=== PATIENT | female | born 1950 | race Hispanic/Latino ===

== ENCOUNTER → 2019-01-01 | Outpatient (CLI) | payer MEDICARE ==
[~2019-01-01] VITALS: Ht 157.5 cm; Wt 74.8 kg
[~2019-01-01] MED LIST: AZAT50TA PO; CYCL10 PO; HYDR-4060 PO; LOSA100T58 PO; PRED2.5T PO; PRED5TAB PO; REGADENOSON 0.4 MG/5 ML PF SYG IVP SCH; RITU1010I INJ; SULF500T8 PO; VALS80TA2 PO
== END | disposition home or self-care (01) ==
LOC: SHCH 08:38
PROVIDERS: ATTEND Internal Medicine Cardiovascular Disease
DX: I25.119 Atherosclerotic heart disease of native coronary artery with unspecified angina pectoris (principal)
CPT/HCPCS: 78452; 93017; 96374; A9500 ×2; J2785

== ENCOUNTER → 2019-01-14 | Outpatient (CLI) | payer MEDICARE ==
[~2019-01-14] MED LIST changes: -REGADENOSON 0.4 MG/5 ML PF SYG IVP SCH
== END | disposition home or self-care (01) ==
LOC: SHCH 11:02
PROVIDERS: ATTEND Internal Medicine Cardiovascular Disease
DX: I08.0 Rheumatic disorders of both mitral and aortic valves (principal); I10 Essential (primary) hypertension
CPT/HCPCS: 93306

== ENCOUNTER 2019-02-02 06:46 | Day surgery (SDC) | payer MEDICARE ==
[2019-01-30 15:56] VITALS: BP 130/74
[2019-01-30 16:02] LABS: EOSINOPHILS % (AUTO) 2.2 % (0.0-8.0); HEMATOCRIT 30.3 % (36-48); LYMPHOCYTES % (AUTO) 24.4 % (21.0-51.0); MEAN CORPUSCULAR HGB CONC 31.2 g/dL (32.0-36.0); MEAN CORPUSCULAR VOLUME 73.7 fL (79-99); MONOCYTES % (AUTO) 9.6 % (3.0-13.0); NEUTROPHILS % (AUTO) 62.8 % (40.0-77.0); PLATELET COUNT (AUTO) 246 K/uL (130-400); RED BLOOD CELL COUNT(AUTO) 4.11 MIL/uL (4.00-5.50); RED CELL DISTRIBUTION WIDTH 18.4 % (11.0-15.5); WHITE BLOOD COUNT (AUTO) 3.9 K/uL (4.8-10.8)
--- NOTE | 2019-01-30 17:46 | NUR ---
LABS INFORMED DR. TONG OF CBC UNCHANGED FROM PCP VISIT. PT HAS CHRONIC ANEMIA AND INFORMED DR. TONG OF HYDRCORTISONE TO BE GIVEN PRIOR OR AFTER PROCEDURE SO RA DOES NOT FLARE UP. NO ORDERS RECEIVED. PROCEED WITH PLANNED PROCEDURE
[~2019-02-02] VITALS: Ht 154.9 cm; Wt 71.9 kg
[2019-02-02] VITALS (14 sets, daily range): BP systolic 128–151; BP diastolic 72–92
[2019-02-02] MEDS: CEFAZOLIN SODIUM 1 GM VIAL IVP SCH ×2 (06:00→11:08)
[2019-02-02] MEDS ORDERED: LACTATED RINGERS 1000ML 1,000 ML IV ONE (07:24)
[2019-02-02] MEDS ORDERED: HYOS-28 PO (07:45)
[2019-02-02] MEDS ORDERED: ASPI-1026 PO (07:45)
[2019-02-02] MEDS ORDERED: NITR0.4T50 SL (07:45)
[2019-02-02] MEDS ORDERED: OMEP40CA37 PO (07:45)
[2019-02-02] MEDS ORDERED: HYDR200T4 PO (07:45)
[2019-02-02] MEDS ORDERED: CLON0.1T PO (07:45)
--- NOTE | 2019-02-02 07:47 | NUR ---
PRE OP PREP pt left shoulder wiped with chlorhexidine 2% cloth by Alisia Hicks Addendum: 02/02/19 at 0750 by MARIA LUISA DENNIS RN RN Amended: Links added.
[2019-02-02] MEDS ORDERED: LIDOCAINE PF 2% 5ML ABBOJECT ONE (08:24)
[2019-02-02] MEDS ORDERED: GLYCOPYRROLATE 1 MG/5 ML SYRINGE ONE (08:24)
[2019-02-02] MEDS ORDERED: ROPIVACAINE 0.5% 5MG/ML 30ML IJ ONE (08:24)
[2019-02-02] MEDS ORDERED: FENTANYL CITRATE PF 50 MCG/1 ML 2ML VIAL ONE (08:25)
[2019-02-02] MEDS ORDERED: NEOSTIGMINE 5MG/5ML SYR IV ONE (08:25)
[2019-02-02] MEDS ORDERED: MIDAZOLAM HCL 1 MG/ML 2ML VIAL ONE (08:25)
[2019-02-02] MEDS ORDERED: PROPOFOL 10 MG/ML 20ML VIAL IV ONE (08:25)
[2019-02-02] MEDS ORDERED: ROCURONIUM 10MG/1ML SYR 10 MG/ML ML ONE ×2 (08:25→11:03)
[2019-02-02] MEDS ORDERED: EPINEPHRINE 1 MG/ML 30ML VIAL IJ ONE (08:42)
[2019-02-02] MEDS ORDERED: METHYLPREDNISOLONE SOD SUCC 125MG/2ML VIAL ONE (09:05)
[2019-02-02] MEDS ORDERED: EPHEDRINE SULFATE 50 MG/ML AMPULE ONE (11:06)
[2019-02-02] MEDS ORDERED: ONDANSETRON HCL 4 MG/2 ML VIAL ONE (12:22)
[2019-02-02] MEDS ORDERED: HYDR-4457 PO (12:28)
[2019-02-02] MEDS ORDERED: CEPH500B PO (12:28)
--- NOTE | 2019-02-02 13:35 | NUR ---
RECEIVE PT RECEIVED FROM PACU VIA STRETCHER AWAKE ALERT ORIENTED X3. PT STABLE. NO COMPLAINTS MADE. LEFT ARM IN SLING. LEFT SHOULDER DRESSINGS DRY AND INTACT, NO OOZING NOTED. ICE PACK APPLIED TO SITE. SENSATION LEFT SHOULDER/UPPER EXTREMITY INTACT, HAND REAL ESTATE INVESTOR WEAK, CAPILLARY REFILLS BRISK. CALL MAGAÑA WITHIN REACH, WILL CALL FOR FAMILY TO COME IN TO ROOM.
--- NOTE | 2019-02-02 14:10 | NUR ---
DISCHARGE PT DISCHARGED VIA WHEELCHAIR WITH DAUGHTER. PT STABLE. NO COMPLAINTS MADE. LEFT SHOULDER DRESSINGS REMAINED DRY AND INTACT, NO OOZING TO SITE NOTED. LEFT ARM IN SLING. NO CHANGES FROM ARRIVAL TO UNIT. DISCHARGE INSTRUCTIONS GIVEN TO DAUGHTER, VERBALIZED UNDERSTANDING.
== END 2019-02-02 14:10 | disposition home or self-care (01) ==
LOC: DAH 06:46
PROVIDERS: ATTEND Orthopaedic Surgery
DX: M19.012 Primary osteoarthritis, left shoulder (principal); M32.9 Systemic lupus erythematosus, unspecified; I10 Essential (primary) hypertension; E78.5 Hyperlipidemia, unspecified; Z87.891 Personal history of nicotine dependence; Z79.82 Long term (current) use of aspirin; Z98.890 Other specified postprocedural states; M25.512 Pain in left shoulder; G89.29 Other chronic pain; Z90.710 Acquired absence of both cervix and uterus; M25.812 Other specified joint disorders, left shoulder
CPT/HCPCS: 29822; 29824; 36415; 64415; 85025; A4565; A4649 ×3; A4930; A6204; G0168; J0171; J0690; J2001; J2250; J2405; J2704; J2710; J2795; J2930; J3010; J3490 ×2; J7030; J7120

== ENCOUNTER → 2019-10-08 | Outpatient (CLI) | payer MEDICARE ==
[~2019-10-08] MED LIST changes: +ASPI-1026 PO; +CEPH500B PO; +CLON0.1T PO; -CYCL10 PO; -HYDR-4060 PO; +HYDR-4457 PO; +HYDR200T4 PO; +HYOS-28 PO; +NITR0.4T50 SL; +OMEP40CA13 PO; -RITU1010I INJ; -VALS80TA2 PO
== END | disposition home or self-care (01) ==
LOC: RAH 10:00
PROVIDERS: ATTEND Internal Medicine Cardiovascular Disease
DX: R51 Headache (principal); R42 Dizziness and giddiness
CPT/HCPCS: 70450

== ENCOUNTER 2019-10-23 19:35 | Emergency (ER) | payer MEDICARE ==
[2019-10-23 20:36] LABS: APPEARANCE,URINE Clear (CLEAR); BILIRUBIN,URINE Negative (NEGATIVE); COLOR,URINE Yellow (YELLOW); GLUCOSE, URINE (UA) Negative (NEGATIVE); KETONES,URINE Negative (NEGATIVE); LEUKOCYTE ESTERASE ,URINE Moderate (NEGATIVE); NITRATE,URINE Positive (NEGATIVE); OCCULT BLOOD,URINE Negative (NEGATIVE); PH,URINE 6.5 (5.0-8.0); PROTEIN,URINE Negative (NEGATIVE)
[2019-10-23 20:48] LABS: BACTERIA,URINE Moderate /HPF (None Seen); MUCUS,URINE Few LPF (None Seen); SQUAMOUS EPITHELIAL CELL,UR 0-2 /HPF (0-2)
[2019-10-23] MEDS ORDERED: CEFTRIAXONE SODIUM 1 GM ONE (20:51)
[2019-10-23] MEDS ORDERED: LIDOCAINE HCL-MPF 1% 2ML VIAL ONE (20:51)
[2019-10-23 21:03] LABS: BASOPHILS % (AUTO) 0.6 % (0.0-5.0); HEMATOCRIT 38.1 % (36-48); LYMPHOCYTES % (AUTO) 22.8 % (21.0-51.0); MEAN CORPUSCULAR HEMOGLOBIN 24.7 pg (27.0-33.0); MEAN CORPUSCULAR HGB CONC 31.5 g/dL (32.0-36.0); MEAN CORPUSCULAR VOLUME 78.6 fL (79-99); NEUTROPHILS % (AUTO) 65.4 % (40.0-77.0); PLATELET COUNT (AUTO) 226 K/uL (130-400); RED BLOOD CELL COUNT(AUTO) 4.85 MIL/uL (4.00-5.50); RED CELL DISTRIBUTION WIDTH 21.2 % (11.0-15.5); WHITE BLOOD COUNT (AUTO) 6.4 K/uL (4.8-10.8)
[2019-10-23 21:16] LABS: CREATININE 0.8 mg/dL (0.5-1.5); POTASSIUM 4.5 mmol/L (3.5-5.1)
[2019-10-23 21:19] LABS: INR 0.95 (0.85-1.15); PARTIAL THROMBOPLASTIN TIME 26.3 SEC (26.3-35.5)
[2019-10-23 21:21] LABS: ALBUMIN 3.8 g/dL (3.5-5.0); BILIRUBIN,TOTAL 0.2 mg/dL (0.2-1.0); TOTAL PROTEIN, SERUM 6.9 g/dL (6.0-8.3)
== END 2019-10-23 21:26 | disposition home or self-care (01) ==
LOC: EDH 19:35
DX: N39.0 Urinary tract infection, site not specified (principal); K59.00 Constipation, unspecified; G89.29 Other chronic pain; M54.5 Low back pain; M32.9 Systemic lupus erythematosus, unspecified; M06.9 Rheumatoid arthritis, unspecified; Z98.890 Other specified postprocedural states
CPT/HCPCS: 36415; 74176; 80053; 81001; 83690; 85025; 85610; 85730; 96372; 99284; J0696; J3490

== ENCOUNTER 2020-04-27 19:22 | Emergency (ER) | payer MEDICARE ==
[2020-04-27] MEDS ORDERED: SODIUM CHLORIDE 0.9% 1000ML 1,000 ML IV ONE (19:23)
[2020-04-27] MEDS ORDERED: FAMOTIDINE/PF 20 MG/2 ML VIAL IV ONE (19:58)
[2020-04-27] MEDS ORDERED: ONDANSETRON HCL 4 MG/2 ML VIAL ONE (19:58)
[2020-04-27 20:01] LABS: BASOPHILS % (AUTO) 0.4 % (0.0-5.0); EOSINOPHILS % (AUTO) 2.1 % (0.0-8.0); HEMATOCRIT 40.8 % (36-48); LYMPHOCYTES % (AUTO) 31.1 % (21.0-51.0); MEAN CORPUSCULAR HEMOGLOBIN 29.3 pg (27.0-33.0); MEAN CORPUSCULAR HGB CONC 33.1 g/dL (32.0-36.0); MEAN CORPUSCULAR VOLUME 88.7 fL (79-99); NEUTROPHILS % (AUTO) 56.2 % (40.0-77.0); PLATELET COUNT (AUTO) 180 K/uL (130-400); RED CELL DISTRIBUTION WIDTH 15.3 % (11.0-15.5); WHITE BLOOD COUNT (AUTO) 4.8 K/uL (4.8-10.8)
[2020-04-27 20:20] LABS: CREATININE 0.6 mg/dL (0.5-1.5); POTASSIUM 3.9 mmol/L (3.5-5.1)
[2020-04-27 20:21] LABS: INR 0.9 (0.85-1.15); PARTIAL THROMBOPLASTIN TIME 24.6 SEC (26.3-35.5); PROTHROMBIN TIME 9.8 SEC (9.6-11.6)
[2020-04-27 20:24] LABS: BILIRUBIN,TOTAL 0.2 mg/dL (0.2-1.0); TOTAL PROTEIN, SERUM 6.9 g/dL (6.0-8.3)
[2020-04-27] MEDS ORDERED: IOHEXOL-350 75 ML VIAL IV ONE (20:31)
[2020-04-27 21:54] LABS: APPEARANCE,URINE Clear (CLEAR); BILIRUBIN,URINE Negative (NEGATIVE); COLOR,URINE Yellow (YELLOW); GLUCOSE, URINE (UA) Negative (NEGATIVE); KETONES,URINE Negative (NEGATIVE); LEUKOCYTE ESTERASE ,URINE Negative (NEGATIVE); NITRATE,URINE Negative (NEGATIVE); OCCULT BLOOD,URINE Negative (NEGATIVE); PROTEIN,URINE Negative (NEGATIVE); UROBILINOGEN,URINE 0.2 mg/dL (0.2-1.0)
[2020-04-27] MEDS ORDERED: METOCLOPRAMIDE 10 MG/2 ML VIAL ONE (22:08)
[2020-04-27] MEDS ORDERED: DICYCLOMINE HCL 20 MG TAB ONE (22:09)
[2020-04-27] MEDS ORDERED: HYOSCYAMINE SULFATE 0.125 MG TAB.SUBL SL ONE (22:09)
== END 2020-04-27 22:38 | disposition home or self-care (01) ==
LOC: EDH 19:22
DX: K52.9 Noninfective gastroenteritis and colitis, unspecified (principal); M06.9 Rheumatoid arthritis, unspecified; M32.9 Systemic lupus erythematosus, unspecified; M19.90 Unspecified osteoarthritis, unspecified site; Z90.710 Acquired absence of both cervix and uterus; Z90.49 Acquired absence of other specified parts of digestive tract; Z72.0 Tobacco use
CPT/HCPCS: 36415; 74177; 80053; 81003; 83605; 83690; 84484; 85025; 85610; 85730; 93005; 96361; 96374; 96375; 99285; J2405; J2765; J3490; J7030; Q9967

== ENCOUNTER 2020-08-03 11:33 | Inpatient (IN) | payer MEDICARE ==
[~2020-08-03] VITALS: Ht 157.5 cm; Wt 61.8 kg
[2020-08-03 11:55] LABS: BASOPHILS % (AUTO) 0.6 % (0.0-5.0); EOSINOPHILS % (AUTO) 1.8 % (0.0-8.0); LYMPHOCYTES % (AUTO) 18.9 % (21.0-51.0); MEAN CORPUSCULAR HEMOGLOBIN 30.2 pg (27.0-33.0); MEAN CORPUSCULAR VOLUME 88.8 fL (79-99); MONOCYTES % (AUTO) 7.7 % (3.0-13.0); NEUTROPHILS % (AUTO) 70.8 % (40.0-77.0); PLATELET COUNT (AUTO) 245 K/uL (130-400); RED BLOOD CELL COUNT(AUTO) 4.73 MIL/uL (4.00-5.50); RED CELL DISTRIBUTION WIDTH 13.5 % (11.0-15.5); WHITE BLOOD COUNT (AUTO) 5.1 K/uL (4.8-10.8)
[2020-08-03 12:00] LABS: CREATININE 0.6 mg/dL (0.5-1.5); POTASSIUM 3.1 mmol/L (3.5-5.1)
[2020-08-03 12:05] LABS: ALBUMIN 3.8 g/dL (3.5-5.0); BILIRUBIN,TOTAL 0.3 mg/dL (0.2-1.0); TOTAL PROTEIN, SERUM 6.9 g/dL (6.0-8.3)
[2020-08-03 12:21] LABS: INR 0.92 (0.85-1.15)
[2020-08-03] MEDS ORDERED: SODIUM CHLORIDE 0.9% 1000ML 1,000 ML IV ONE ×2 (14:08→17:10)
[2020-08-03] MEDS ORDERED: MECLIZINE HCL 25 MG TABLET ONE (14:09)
[2020-08-03 14:35] LABS: APPEARANCE,URINE Clear (CLEAR); BILIRUBIN,URINE Negative (NEGATIVE); COLOR,URINE Yellow (YELLOW); GLUCOSE, URINE (UA) Negative (NEGATIVE); KETONES,URINE Negative (NEGATIVE); LEUKOCYTE ESTERASE ,URINE Negative (NEGATIVE); NITRATE,URINE Negative (NEGATIVE); OCCULT BLOOD,URINE Negative (NEGATIVE); PROTEIN,URINE Negative (NEGATIVE); UROBILINOGEN,URINE 0.2 mg/dL (0.2-1.0)
[2020-08-03] MEDS ORDERED: ACETAMINOPHEN 325 MG TAB PO PRN (16:45)
[2020-08-03] MEDS ORDERED: MAG HYDROX/AL HYDROX/SIMETH ES 30 ML SUSP UDCUP PO PRN (16:45)
[2020-08-03] MEDS ORDERED: GUAIFENESIN-DM 200/20 MG 10 ML PO PRN (16:45)
[2020-08-03] MEDS ORDERED: ACETAMINOPHEN-CODEINE 300/30MG TAB PO PRN ×2 (16:45)
[2020-08-03] MEDS ORDERED: ONDANSETRON HCL 4 MG/2 ML VIAL IV PRN (16:45)
[2020-08-03] MEDS: SODIUM CHLORIDE 0.9% 1000ML 1,000 ML IV SCH (16:45)
[2020-08-03] MEDS ORDERED: NITROGLYCERIN 0.4 MG SL TAB SL PRN (16:45)
[2020-08-03] MEDS ORDERED: ACETAMINOPHEN-CODEINE 300/30MG TAB ONE (17:07)
[2020-08-03] MEDS ORDERED: POTASSIUM CHLORIDE 20 MEQ ERTAB PO ONE (17:08)
[2020-08-03 20:06] VITALS: BP 177/97
--- NOTE | 2020-08-03 20:10 | NUR ---
ADMIT PT ADMITTED TO ROOM 403, AAOX3. VERBALIZES OF DIZZINESS WITH AMBULATION. DENIES ANY PAINS AT THIS TIME BUT CLAIMS SHE WILL NEED SOME PAIN MEDS FOR HER TO SLEEP. DUE TO CHRONIC BACK PAINS AND ARTHRITIC PAINS. ADMISSION ASSESSMENT DONE, PLEASE REFER TO CHART. IVF FROM ER OF CONTINUED, REGULATED AT 75CC/HR. ADMISSION CARE DONE. ADMISSION DATA BASE COMPLETED. PLACED COMFORTABLY IN BED WITH HOB ELEVATED. ORIENTED TO ROOM AND UNIT. IN FOR MORE CARE AND MANAGEMENT. Addendum: 08/03/20 at 2322 by CHELSI ROMERO RN RN Amended: Links added.
[2020-08-03] MEDS: ACETAMINOPHEN 325 MG TAB PO PRN (21:29)
--- NOTE | 2020-08-03 21:30 | NUR ---
PAIN PT CLAIMS OF BACK PAINS, MEDICATED WITH TYLENOL PO. FLU VACCINE REQUESTED BY PT ADMINISTERED WELL. PT TOLERATED MED SWELL. ENCOURAGED TO REST AND SLEEP. KEPT COMFORTABLE IN BED. WILL RE-ASSESS PT.
[2020-08-03] MEDS ORDERED: FLUD0.1T2 PO (21:41)
[2020-08-03] MEDS ORDERED: IRON 65MG PO (21:41)
[2020-08-03] MEDS ORDERED: BP SUPPORT PO (21:41)
[2020-08-03] MEDS ORDERED: AMLO-257 PO (21:41)
[2020-08-03] MEDS ORDERED: HYDROCODONE/ACETAMINOPHEN 5/325 MG TAB PO PRN (22:30)
[2020-08-03] MEDS ORDERED: CLONIDINE HCL 0.1 MG TABLET PO PRN (22:30)
[2020-08-03] MEDS ORDERED: LABETALOL HCL 5 MG/ML 20ML VIAL IV PRN (22:45)
[2020-08-03] MEDS ORDERED: CLONIDINE HCL 0.1 MG TABLET ONE (22:45)
[2020-08-03] MEDS ORDERED: HYOSCYAMINE SULFATE 0.125 MG TAB.SUBL SL PRN (23:15)
[2020-08-04] VITALS (7 sets, daily range): BP systolic 116–163; BP diastolic 84–105
--- NOTE | 2020-08-04 02:00 | NUR ---
ROUNDS PT FAIRLY ASLEEP. NO DISTRESS NOTED. KEPT UNDISTURBED FOR NOW. WILL CONTINUE TO MONITOR. CALL LIGHT WITHIN REACH.
[2020-08-04 05:19] LABS: HEMATOCRIT 39.8 % (36-48); MEAN CORPUSCULAR HGB CONC 33.7 g/dL (32.0-36.0); MEAN CORPUSCULAR VOLUME 89.2 fL (79-99); RED BLOOD CELL COUNT(AUTO) 4.46 MIL/uL (4.00-5.50); RED CELL DISTRIBUTION WIDTH 13.6 % (11.0-15.5); WHITE BLOOD COUNT (AUTO) 4.6 K/uL (4.8-10.8)
[2020-08-04 05:30] LABS: INR 0.92 (0.85-1.15)
[2020-08-04 05:35] LABS: HEMOGLOBIN A1C 5.8 % (4.0-6.0)
[2020-08-04 05:57] LABS: ALANINE AMINOTRANSFERASE 21 U/L (12-78); ALBUMIN 3.6 g/dL (3.5-5.0); ASPARTATE AMINOTRANSFERASE 20 U/L (10-37); BILIRUBIN,TOTAL 0.3 mg/dL (0.2-1.0); CARBON DIOXIDE 28 mmol/L (21-32); CHLORIDE 110 mmol/L (101-111); CHOLESTEROL 195 mg/dL (<200); CREATINE KINASE, TOTAL 42 U/L (21-232); CREATININE 0.5 mg/dL (0.5-1.5); GLOMERULAR FILTR. RATE CALC 130 mL/min (>60); GLUCOSE,RANDOM 104 mg/dL (70-105); HDL CHOLESTEROL 55 mg/dL (35-85); LDL DIRECT 110 mg/dL (0-99); MYOGLOBIN 19 ng/mL (10-92); SODIUM SERUM 146 mmol/L (136-145); TOTAL PROTEIN, SERUM 6.7 g/dL (6.0-8.3); TRIGLYCERIDES 84 mg/dL (30-200); TROPONIN I < 0.04 ng/mL (0.00-0.06); UREA NITROGEN, BLOOD 11 mg/dL (7-18)
[2020-08-04] MEDS: SODIUM CHLORIDE 0.9% 1000ML 1,000 ML IV SCH (06:07)
--- NOTE | 2020-08-04 06:10 | NUR ---
ROUNDS PT STILL FAIRLY ASLEEP. NO DISTRESS NOTED. NEW IV BAG HUNG. KEPT UNDISTURBED. FOR MORE CARE.
[2020-08-04] MEDS ORDERED: BP SUPPORT PO SCH (09:00)
[2020-08-04] MEDS ORDERED: FLU VACC QS2020-21(6MOS UP)/PF 60 MCG/0.5 ML ML IM ONE (09:00)
--- NOTE | 2020-08-04 09:08 | NUR ---
DR BRYANT ROUNDED ON PATIENT , WRITTEN ORDERS RECEIVED
[2020-08-04] MEDS: FERROUS SULFATE 325 MG TABLET.DR PO SCH (10:20)
[2020-08-04] MEDS: PREDNISONE 5 MG TABLET PO SCH (10:20)
[2020-08-04] MEDS: AZATHIOPRINE 50 MG TAB PO SCH ×2 (10:21→21:23)
[2020-08-04] MEDS: FLUDROCORTISONE ACETATE 0.1 MG TABLET PO SCH (10:21)
[2020-08-04] MEDS: LOSARTAN 100 MG TABLET PO SCH (10:21)
[2020-08-04] MEDS: AMLODIPINE BESYLATE 5 MG TAB PO SCH (10:21)
[2020-08-04] MEDS: PANTOPRAZOLE SODIUM 40 MG TABLET.DR PO SCH (10:30)
[2020-08-04] MEDS: ASPIRIN 325 MG TABLET PO SCH (10:31)
[2020-08-04] MEDS ORDERED: MECLIZINE HCL 25 MG TABLET PO PRN (12:00)
[2020-08-04] MEDS: SULFASALAZINE 500 MG TAB.DR PO SCH ×2 (13:36→21:23)
[2020-08-04] MEDS: HYDROXYCHLOROQUINE SULFATE 200 MG TAB PO SCH (13:36)
--- NOTE | 2020-08-04 13:48 | NUR ---
RD NOTIFICATION Pt admitted due to a presyncopal episode. Pt has hx of lupus, RA, OA Pt stated she only eats 1 meal at home. She feels dizzy when she eats more. Pt has had a previous surgery in her stomach lining as per pt and daughter. Unclear on name of procedure. Pt takes iron supplementation as per her PCP recommendations Pt and pt's daughter request education on anti-inflammatory diet due to lupus, RA, and OA. RD RECOMMENDATION 6 SMALL MEALS/DAY ENSURE QD MONITOR PO INTAKE MONITOR PO TOLERANCE DIET EDUCATION 1500 ML FLUID RESTRICTION- SIGN AT PT'S DOOR LABS: WBC 4.6, NA 146, LDL 110, A1C 5.8, CREAT 0.5 Addendum: 08/04/20 at [address] Amended: Links added.
--- NOTE | 2020-08-04 14:45 | NUR ---
RD TEACHING NOTE Pt and pt's daughter requested diet education and handouts for anti-inflammatory diet RD provided education and handouts from [employer]. Pt was encouraged to swap table salt with MRS.Dash junior. Daughter was encouraged to keep a list of foods that trigger pain for pt. Pt and pt's daughter verbalized understanding to diet education. RD will continue to follow, thank you Addendum: 08/04/20 at [address] Amended: Links added.
--- NOTE | 2020-08-04 16:24 | NUR ---
[facility] CM met with pt and son in room this morning, discussed dc plans. Pt is independent prior to admission, lives at home alone, son lives close by. Pt has a walker, wheelchair, rollator walker, 2 shower chairs, 4 cane. Denies any other equipments/services. Feels safe to go back home, still drives, son able to assist with transportation and needs as necessary. Pt uses [facility]. DC plan to home once stable. CM to continue to follow up. Addendum: 08/04/20 at 1626 by KRUPA MELENDREZ LVN Amended: Links added.
[2020-08-04] MEDS ORDERED: PREDNISONE 5 MG TABLET PO SCH (21:00)
--- NOTE | 2020-08-04 21:25 | NUR ---
MEDS SHIFT ASSESSMENT DONE, PLEASE REFER TO CHART. DUE MEDS ADMINISTERED, TOLERATED WELL. KEPT COMFORTABLE AND RESTED. CALL LIGHT WITHIN REACH. WILL MONITOR PT. Addendum: 08/04/20 at 2233 by CHELSI ROMERO RN RN Amended: Links added.
--- NOTE | 2020-08-04 23:30 | NUR ---
H/A PT'S BP ELEVATED AT 163/105 AND COMPLAINTS OF HEADACHE. MEDICATED WITH TYLENOL AND CLONIDINE PO. ENCOURAGED TO REST. WILL RE-ASSESS PT.
[2020-08-04] MEDS: ACETAMINOPHEN 325 MG TAB PO PRN (23:31)
[2020-08-05 00:35] VITALS: BP 139/96
--- NOTE | 2020-08-05 02:00 | NUR ---
ROUNDS PT RESTING WELL,FAIRLY ASLEEP. NO DISTRESS NOTED. KEPT UNDISTURBED FOR NOW. WILL CONTINUE TO MONITOR. CALL LIGHT WITHIN REACH.
[2020-08-05 03:56] LABS: BASOPHILS % (AUTO) 0.6 % (0.0-5.0); EOSINOPHILS % (AUTO) 1.6 % (0.0-8.0); HEMATOCRIT 39.6 % (36-48); LYMPHOCYTES % (AUTO) 25.8 % (21.0-51.0); MEAN CORPUSCULAR HEMOGLOBIN 30.2 pg (27.0-33.0); MEAN CORPUSCULAR HGB CONC 33.8 g/dL (32.0-36.0); MEAN CORPUSCULAR VOLUME 89.4 fL (79-99); MONOCYTES % (AUTO) 10.9 % (3.0-13.0); NEUTROPHILS % (AUTO) 60.9 % (40.0-77.0); PLATELET COUNT (AUTO) 228 K/uL (130-400); RED BLOOD CELL COUNT(AUTO) 4.43 MIL/uL (4.00-5.50); RED CELL DISTRIBUTION WIDTH 13.3 % (11.0-15.5); WHITE BLOOD COUNT (AUTO) 6.2 K/uL (4.8-10.8)
[2020-08-05 04:04] VITALS: BP 131/82
[2020-08-05 04:14] LABS: PHOSPHORUS 3.8 mg/dL (2.5-4.9)
[2020-08-05 05:06] LABS: HEMOGLOBIN A1C 5.5 % (4.0-6.0)
--- NOTE | 2020-08-05 05:47 | NUR ---
ROUNDS PT RESTING WELL, NO DISTRESS NOTED. NO CONCERNS VERBALIZED. KEPT COMFORTABLE. FOR MORE CARE.
[2020-08-05 08:00] VITALS: BP 128/84
[2020-08-05] MEDS ORDERED: MAGNESIUM 2GM PREMIX 50ML 50 ML IV PRN (08:00)
[2020-08-05] MEDS ORDERED: BP SUPPORT PO SCH (09:00)
[2020-08-05] MEDS: SULFASALAZINE 500 MG TAB.DR PO SCH (09:00)
--- NOTE | 2020-08-05 09:01 | NUR ---
DR. ANGELES IN TO SEE PT. NOW
[2020-08-05] MEDS: LOSARTAN 100 MG TABLET PO SCH (09:05)
[2020-08-05] MEDS: ASPIRIN 325 MG TABLET PO SCH (09:05)
[2020-08-05] MEDS: AMLODIPINE BESYLATE 5 MG TAB PO SCH (09:05)
[2020-08-05] MEDS: HYDROXYCHLOROQUINE SULFATE 200 MG TAB PO SCH (09:05)
[2020-08-05] MEDS: PREDNISONE 5 MG TABLET PO SCH (09:05)
[2020-08-05] MEDS: FERROUS SULFATE 325 MG TABLET.DR PO SCH (09:06)
[2020-08-05] MEDS: PANTOPRAZOLE SODIUM 40 MG TABLET.DR PO SCH (09:06)
[2020-08-05] MEDS: FLUDROCORTISONE ACETATE 0.1 MG TABLET PO SCH (09:06)
[2020-08-05] MEDS ORDERED: AMOXICILLIN/POTASSIUM CLAV 875-125 TABLET PO SCH (10:00)
[2020-08-05] MEDS: AZATHIOPRINE 50 MG TAB PO SCH (10:18)
--- NOTE | 2020-08-05 11:39 | NUR ---
1052 Patient signed IM Letter, I faxed IM Letter to [phone] and placed in chart under consent tab
[2020-08-05 12:00] VITALS: BP 139/96
[2020-08-05 15:45] VITALS: BP 127/89
[2020-08-05] MEDS ORDERED: LABETALOL HCL 5 MG/ML 20ML VIAL IV PRN (16:45)
--- NOTE | 2020-08-05 17:50 | NUR ---
PT. DISCHARGED USING TEACH BACK, VERBALIZED UNDERSTANDING OF INST. GIVEN. SALINE LOCK AND HEART MONITOR REMOVED. RX GIVEN AND EXPLAINED CHANGES AND UNDERSTANDS AMLODIPINE WAS INCREASED TO 10MG DAILY AND WILL CONTINUE TO TAKE [place] BEFORE, REC. TO CK. BP DAILY.
--- NOTE | 2020-08-08 11:19 | NUR ---
TRANSITIONAL CARE - POST DISCHARGE NOTE I called patient to number on file and was met with no answer. I left a voicemail identifying myself and requesting a callback. I also called number on file for patient's son. As per Mr Castellanos, the patient is doing well. He mentions she has a follow up with her PCP this week and that she is taking her home medications as ordered. Addendum: 08/08/20 at 1124 by MARILOU PASTRANA Mrs Castellanos returned call and mentions she is doing well, and that she will follow up with her PCP today. She states she is taking her home medications. No complaints of pain, cp, sob, n/v/d or fevers reported.
== END 2020-08-05 18:00 | disposition home or self-care (01) | DRG 312 ==
LOC: EDH 11:33 → EDHIP 16:31 → OBSVTOIN 16:31 → 4AH 19:47
PROVIDERS: ADMIT Hospitalist; ATTEND Hospitalist
DX: R55 Syncope and collapse (principal); M06.9 Rheumatoid arthritis, unspecified; F17.210 Nicotine dependence, cigarettes, uncomplicated; M32.9 Systemic lupus erythematosus, unspecified; I10 Essential (primary) hypertension; H81.11 Benign paroxysmal vertigo, right ear; H66.91 Otitis media, unspecified, right ear; Z23 Encounter for immunization; Z82.3 Family history of stroke; Z82.49 Family history of ischemic heart disease and other diseases of the circulatory system; Z83.3 Family history of diabetes mellitus; Z79.899 Other long term (current) drug therapy
CPT/HCPCS: 36415; 70450; 70551; 80053; 80061; 81003; 82550; 82948; 83036; 83735; 83874; 84100; 84145; 84484; 85025; 85027; 85610; 85730; 93005; 93306; 93356; 93880; 97039; G0378; J3475; J7030; J7500; J7512

== ENCOUNTER → 2020-11-28 | Outpatient (CLI) | payer OTHER, MEDICARE ==
[~2020-11-28] MED LIST changes: +BP SUPPORT PO; -CEPH500B PO; -CLON0.1T PO; +FLUD0.1T2 PO; -HYDR-4457 PO; +IRON 65MG PO
== END | disposition home or self-care (01) ==
LOC: OIH 10:26
PROVIDERS: ATTEND Internal Medicine
DX: M19.072 Primary osteoarthritis, left ankle and foot (principal); M19.071 Primary osteoarthritis, right ankle and foot; M21.072 Valgus deformity, not elsewhere classified, left ankle; M85.872 Other specified disorders of bone density and structure, left ankle and foot
CPT/HCPCS: 73630

== ENCOUNTER 2021-03-22 20:44 | Emergency (ER) | payer OTHER, MEDICARE ==
[~2021-03-22] VITALS: Ht 152.4 cm; Wt 64.0 kg
[~2021-03-22 20:44] MED LIST changes: +AMLO-258 PO; +CLON0.1T PO; +LINA290C PO; -OMEP40CA13 PO; +OMEP40CA21 PO
[2021-03-22 20:45] VITALS: BP 124/83
[2021-03-22] MEDS ORDERED: ASPIRIN 325MG TAB PO ONE (21:00)
[2021-03-22 21:09] LABS: BASOPHILS % (AUTO) 0.8 % (0.0-5.0); EOSINOPHILS % (AUTO) 3.8 % (0.0-8.0); HEMATOCRIT 41.4 % (36-48); LYMPHOCYTES % (AUTO) 33.3 % (21.0-51.0); MEAN CORPUSCULAR HEMOGLOBIN 29.9 pg (27.0-33.0); MEAN CORPUSCULAR HGB CONC 32.6 g/dL (32.0-36.0); MEAN CORPUSCULAR VOLUME 91.8 fL (79-99); MONOCYTES % (AUTO) 10.8 % (3.0-13.0); NEUTROPHILS % (AUTO) 51.1 % (40.0-77.0); PLATELET COUNT (AUTO) 213 K/uL (130-400); RED BLOOD CELL COUNT(AUTO) 4.51 MIL/uL (4.00-5.50); RED CELL DISTRIBUTION WIDTH 13.2 % (11.0-15.5)
[2021-03-22 21:22] LABS: CREATININE 0.8 mg/dL (0.5-1.5); POTASSIUM 3.3 mmol/L (3.5-5.1)
[2021-03-22 21:23] LABS: INR 0.94 (0.85-1.15); PROTHROMBIN TIME 10.3 SEC (9.6-11.6)
[2021-03-22 21:29] LABS: B-TYPE NATRIURETIC PEPTIDE 244 pg/mL (0-100)
[2021-03-22 21:31] LABS: BILIRUBIN,TOTAL 0.2 mg/dL (0.2-1.0); MAGNESIUM 1.8 mg/dL (1.80-2.40); TOTAL PROTEIN, SERUM 7.1 g/dL (6.0-8.3)
[2021-03-22 21:51] VITALS: BP 120/83
[2021-03-22 21:57] LABS: APPEARANCE,URINE Clear (CLEAR); BILIRUBIN,URINE Negative (NEGATIVE); COLOR,URINE Yellow (YELLOW); GLUCOSE, URINE (UA) Negative (NEGATIVE); KETONES,URINE Negative (NEGATIVE); LEUKOCYTE ESTERASE ,URINE Moderate (NEGATIVE); NITRATE,URINE Negative (NEGATIVE); OCCULT BLOOD,URINE Negative (NEGATIVE); PROTEIN,URINE Negative (NEGATIVE)
[2021-03-22 22:04] LABS: RBC,URINE 0-1 /HPF (0-1)
[2021-03-22 22:05] LABS: BACTERIA,URINE Few /HPF (None Seen); MUCUS,URINE Rare LPF (None Seen); SQUAMOUS EPITHELIAL CELL,UR 0-2 /HPF (0-2)
[2021-03-22] MEDS ORDERED: FAMOTIDINE 20MG VIAL IV ONE ×2 (22:30→22:43)
[2021-03-22] MEDS ORDERED: PANTOPRAZOLE 40 MG/VIAL IVP SCH (22:30)
[2021-03-22] MEDS ORDERED: 0.9%NACL 1000ML 1,000 ML IV ONE ×2 (22:30→22:44)
[2021-03-22] MEDS ORDERED: METOCLOPRAMIDE 10 MG/2 ML VIAL IVP ONE (22:30)
[2021-03-22] MEDS ORDERED: METOCLOPRAMIDE 10 MG/2 ML VIAL ONE (22:41)
[2021-03-22] MEDS ORDERED: PANTOPRAZOLE 40 MG/VIAL ONE (22:42)
[2021-03-22] MEDS ORDERED: IOHEXOL 350 MG/ML 100ML INFUS..BTL IV ONE (23:21)
[2021-03-23 00:08] VITALS: BP 152/92
[2021-03-23] MEDS ORDERED: KETOROLAC 15MG/ML VIAL (15MG/ML) ONE (00:26)
[2021-03-23] MEDS ORDERED: LACTULOSE 20 GM/30 ML UDCUP ONE (00:26)
[2021-03-23] MEDS ORDERED: METO5 PO (00:28)
[2021-03-23] MEDS ORDERED: DICY10 PO (00:28)
[2021-03-23] MEDS ORDERED: PANT40TA54 PO (00:28)
[2021-03-23] MEDS ORDERED: LACTULOSE 20 GM/30 ML UDCUP PO ONE (00:30)
[2021-03-23] MEDS ORDERED: KETOROLAC 15MG/ML VIAL (15MG/ML) IV ONE (00:30)
== END 2021-03-23 00:43 | disposition home or self-care (01) ==
LOC: EDH 20:44
DX: K44.9 Diaphragmatic hernia without obstruction or gangrene (principal); K59.00 Constipation, unspecified; R07.89 Other chest pain; R42 Dizziness and giddiness; M32.9 Systemic lupus erythematosus, unspecified; M06.9 Rheumatoid arthritis, unspecified; Z90.49 Acquired absence of other specified parts of digestive tract; Z79.52 Long term (current) use of systemic steroids; Z79.899 Other long term (current) drug therapy; Z79.82 Long term (current) use of aspirin
CPT/HCPCS: 36415; 71045; 74177; 80053; 80061; 81001; 82550; 83690; 83735; 83874; 83880; 84484 ×2; 85025; 85610; 87077; 87088; 87186; 93005; 96361; 96374; 96375 ×2; 99285; C9113; J1885; J2765; J3490; J7030; Q9967

== ENCOUNTER → 2021-04-24 | Outpatient (CLI) | payer OTHER, MEDICARE ==
[~2021-04-24] MED LIST changes: +DICY10 PO; +METO5 PO; +PANT40TA54 PO
== END | disposition home or self-care (01) ==
LOC: RAH 08:44
PROVIDERS: ATTEND Internal Medicine Gastroenterology
DX: K44.9 Diaphragmatic hernia without obstruction or gangrene (principal); K21.9 Gastro-esophageal reflux disease without esophagitis
CPT/HCPCS: 74220

== ENCOUNTER 2021-05-16 06:30 | Day surgery (SDC) | payer OTHER, MEDICARE ==
[~2021-05-16] VITALS: Ht 177.8 cm; Wt 63.5 kg
[~2021-05-16 06:30] MED LIST changes: +0.9%NACL 1000ML 1,000 ML IV ONE; -ASPI-1026 PO; -AZAT50TA PO; -BP SUPPORT PO; -CLON0.1T PO; -DICY10 PO; -FLUD0.1T2 PO; -HYOS-28 PO; -IRON 65MG PO; -METO5 PO; -PANT40TA54 PO; -PRED2.5T PO; -PRED5TAB PO
[2021-05-16 06:55] VITALS: BP 168/86
[2021-05-16] MEDS ORDERED: PROPOFOL 10 MG/ML 20ML VIAL IV ONE (08:07)
[2021-05-16] MEDS ORDERED: GLYCOPYRROLATE 1 MG/5 ML SYRINGE ONE (08:07)
[2021-05-16 08:35] VITALS: BP 101/66
[2021-05-16 08:40] VITALS: BP 108/72
[2021-05-16 08:45] VITALS: BP 122/77
[2021-05-16 08:50] VITALS: BP 132/72
== END 2021-05-16 09:10 | disposition home or self-care (01) ==
LOC: DAH 06:30 → ENDO 06:30
PROVIDERS: ATTEND Internal Medicine Gastroenterology
DX: R93.3 Abnormal findings on diagnostic imaging of other parts of digestive tract (principal); R10.13 Epigastric pain; K44.9 Diaphragmatic hernia without obstruction or gangrene; K31.89 Other diseases of stomach and duodenum; K83.8 Other specified diseases of biliary tract; K59.01 Slow transit constipation; K64.1 Second degree hemorrhoids; Q44.6 Cystic disease of liver; I10 Essential (primary) hypertension; M06.9 Rheumatoid arthritis, unspecified; K21.9 Gastro-esophageal reflux disease without esophagitis; Z20.822 Contact with and (suspected) exposure to COVID-19; Z98.890 Other specified postprocedural states; Z86.010 Personal history of colon polyps; Z90.49 Acquired absence of other specified parts of digestive tract; Z79.899 Other long term (current) drug therapy
CPT/HCPCS: 43237; 87635; 93005; A4606; C9803; J2704; J3490; J7030

== ENCOUNTER → 2021-08-04 | Outpatient (CLI) | payer OTHER, MEDICARE ==
[~2021-08-04] MED LIST changes: -0.9%NACL 1000ML 1,000 ML IV ONE
== END | disposition home or self-care (01) ==
LOC: RAH 10:00
PROVIDERS: ATTEND Internal Medicine
DX: K30 Functional dyspepsia (principal)
CPT/HCPCS: 78264; A9541

== ENCOUNTER 2021-12-06 16:15 | Inpatient (IN) | payer OTHER, MEDICARE ==
[~2021-12-06] VITALS: Ht 157.5 cm; Wt 61.1 kg
[2021-12-06] MEDS ORDERED: NITROGLYCERIN 0.4 MG SL TAB SL PRN (17:00)
[2021-12-06] MEDS ORDERED: GLUCAGON 1MG KIT 1 MG ML IM PRN (17:00)
[2021-12-06] MEDS ORDERED: DEXTROSE 50%-WATER 50 ML DISP.SYRIN IV PRN (17:00)
[2021-12-06 17:03] LABS: BASOPHILS % (AUTO) 0.9 % (0.0-5.0); EOSINOPHILS % (AUTO) 2.5 % (0.0-8.0); HEMATOCRIT 37.4 % (36-48); MEAN CORPUSCULAR HEMOGLOBIN 29.3 pg (27.0-33.0); MEAN CORPUSCULAR HGB CONC 32.6 g/dL (32.0-36.0); MEAN CORPUSCULAR VOLUME 89.7 fL (79-99); MONOCYTES % (AUTO) 10.4 % (3.0-13.0); NEUTROPHILS % (AUTO) 46.2 % (40.0-77.0); PLATELET COUNT (AUTO) 201 K/uL (130-400); RED BLOOD CELL COUNT(AUTO) 4.17 MIL/uL (4.00-5.50); RED CELL DISTRIBUTION WIDTH 14.6 % (11.0-15.5); WHITE BLOOD COUNT (AUTO) 4.4 K/uL (4.8-10.8)
[2021-12-06 17:16] LABS: CREATININE 0.6 mg/dL (0.5-1.5); POTASSIUM 4.1 mmol/L (3.5-5.1)
[2021-12-06] MEDS ORDERED: NITROGLYCERIN 1GM OINT 1 INCH/1GM TD ONE (17:18)
[2021-12-06 17:29] LABS: ALBUMIN 4.4 g/dL (3.5-5.0); BILIRUBIN,TOTAL 0.3 mg/dL (0.2-1.0); TOTAL PROTEIN, SERUM 7.5 g/dL (6.0-8.3)
[2021-12-06] MEDS ORDERED: NITROGLYCERIN PATCH 0.2 MG/HR TD SCH (18:25)
[2021-12-06] MEDS ORDERED: HYDR-4068 PO (20:10)
[2021-12-06] MEDS ORDERED: SUCR1TAB2 PO (20:10)
[2021-12-06] MEDS ORDERED: HYDR200T4 PO (20:10)
[2021-12-06] MEDS ORDERED: METO5TAB2 PO (20:10)
[2021-12-06] MEDS ORDERED: GABA-529 PO (20:10)
[2021-12-06] MEDS: INSULIN HUMULIN R 100 UNIT/ML 3ML SQ SCH (20:40)
[2021-12-06] MEDS: METOPROLOL TARTRATE 25 MG TAB PO SCH (20:40)
[2021-12-06] MEDS: PANTOPRAZOLE 40 MG/VIAL IVP SCH (20:40)
[2021-12-06] MEDS ORDERED: FAMOTIDINE 20MG VIAL IV SCH (21:00)
[2021-12-06] MEDS ORDERED: DIPHENHYDRAMINE HCL 25 MG CAPSULE PO PRN (22:00)
[2021-12-06] MEDS: NITROGLYCERIN 1GM OINT 1 INCH/1GM TD SCH (22:00)
[2021-12-06] MEDS ORDERED: POTASSIUM CHLORIDE 10% ELIXIR 20 MEQ/15 ML UDCUP PO PRN (22:00)
[2021-12-06] MEDS ORDERED: KCL 20 MEQ ERTAB PO PRN (22:00)
[2021-12-06] MEDS ORDERED: POTASSIUM CHLORIDE 20MEQ/100ML 100 ML IV PRN (22:00)
[2021-12-06] MEDS ORDERED: LIDOCAINE HCL-MPF 1% 2ML VIAL IV PRN (22:00)
[2021-12-06] MEDS ORDERED: NITROGLYCERIN 0.4 MG SL TAB SL ONE (23:30)
[2021-12-07] VITALS (7 sets, daily range): BP systolic 104–166; BP diastolic 61–92
[2021-12-07] MEDS ORDERED: CLON0.1T PO (01:14)
[2021-12-07] MEDS ORDERED: HYDR-3420 PO (01:14)
[2021-12-07 04:07] LABS: BASOPHILS % (AUTO) 0.5 % (0.0-5.0); EOSINOPHILS % (AUTO) 3.2 % (0.0-8.0); HEMATOCRIT 33.9 % (36-48); LYMPHOCYTES % (AUTO) 50.7 % (21.0-51.0); MEAN CORPUSCULAR HEMOGLOBIN 29.7 pg (27.0-33.0); MEAN CORPUSCULAR HGB CONC 32.7 g/dL (32.0-36.0); MEAN CORPUSCULAR VOLUME 90.6 fL (79-99); MONOCYTES % (AUTO) 11.9 % (3.0-13.0); NEUTROPHILS % (AUTO) 33.7 % (40.0-77.0); PLATELET COUNT (AUTO) 212 K/uL (130-400); RED BLOOD CELL COUNT(AUTO) 3.74 MIL/uL (4.00-5.50); RED CELL DISTRIBUTION WIDTH 14.6 % (11.0-15.5); WHITE BLOOD COUNT (AUTO) 4.4 K/uL (4.8-10.8)
[2021-12-07 04:43] LABS: ALBUMIN 3.6 g/dL (3.5-5.0); BILIRUBIN,TOTAL 0.4 mg/dL (0.2-1.0); CREATININE 0.7 mg/dL (0.5-1.5); TOTAL PROTEIN, SERUM 6.4 g/dL (6.0-8.3)
[2021-12-07] MEDS: INSULIN HUMULIN R 100 UNIT/ML 3ML SQ SCH ×4 (05:56→21:00)
[2021-12-07] MEDS: NITROGLYCERIN 1GM OINT 1 INCH/1GM TD SCH ×3 (06:09→21:46)
[2021-12-07] MEDS: SUCRALFATE 1 GM TABLET PO SCH ×3 (06:37→16:58)
[2021-12-07] MEDS: METOCLOPRAMIDE 5 MG TABLET PO SCH ×3 (06:37→16:58)
[2021-12-07] MEDS ORDERED: NITROGLYCERIN 0.4 MG SL TAB SL PRN (07:00)
[2021-12-07] MEDS: LOSARTAN 50 MG TABLET PO SCH (08:57)
[2021-12-07] MEDS: HYDROXYCHLOROQUINE SULFATE 200 MG TAB PO SCH ×2 (08:57→21:45)
[2021-12-07] MEDS: METOPROLOL TARTRATE 25 MG TAB PO SCH ×2 (08:57→21:45)
[2021-12-07] MEDS: GABAPENTIN 100 MG CAPSULE PO SCH ×2 (08:57→21:44)
[2021-12-07] MEDS: ASPIRIN 81 MG EC TAB PO SCH (08:57)
[2021-12-07] MEDS: ENOXAPARIN SODIUM 40 MG/0.4 ML SYRINGE SQ SCH (08:59)
[2021-12-07] MEDS ORDERED: HYDRALAZINE HCL 10 MG TABLET PO SCH (09:00)
[2021-12-07] MEDS: PANTOPRAZOLE 40 MG/VIAL IVP SCH (21:46)
[2021-12-08 03:52] VITALS: BP 147/98
[2021-12-08] MEDS: NITROGLYCERIN 1GM OINT 1 INCH/1GM TD SCH ×2 (05:58→14:00)
[2021-12-08] MEDS: INSULIN HUMULIN R 100 UNIT/ML 3ML SQ SCH ×3 (06:36→16:30)
[2021-12-08] MEDS: METOCLOPRAMIDE 5 MG TABLET PO SCH ×3 (06:41→16:33)
[2021-12-08] MEDS: SUCRALFATE 1 GM TABLET PO SCH ×3 (06:41→16:33)
[2021-12-08 08:00] VITALS: BP 152/87
[2021-12-08] MEDS: METOPROLOL TARTRATE 25 MG TAB PO SCH (09:12)
[2021-12-08] MEDS: LOSARTAN 50 MG TABLET PO SCH (09:12)
[2021-12-08] MEDS: ASPIRIN 81 MG EC TAB PO SCH (09:13)
[2021-12-08] MEDS: ENOXAPARIN SODIUM 40 MG/0.4 ML SYRINGE SQ SCH (09:13)
[2021-12-08] MEDS: GABAPENTIN 100 MG CAPSULE PO SCH (09:13)
[2021-12-08] MEDS: HYDROXYCHLOROQUINE SULFATE 200 MG TAB PO SCH (09:13)
[2021-12-08 12:00] VITALS: BP 148/89
[2021-12-08] MEDS ORDERED: HYDRALAZINE 25MG TABLET PO SCH (12:30)
[2021-12-08] MEDS ORDERED: HYDRALAZINE 20MG/ML VIAL IV PRN (12:30)
[2021-12-08 13:15] LABS: CREATININE 0.7 mg/dL (0.5-1.5); MAGNESIUM 2.1 mg/dL (1.80-2.40)
[2021-12-08 16:00] VITALS: BP 179/101
[2021-12-08] MEDS ORDERED: LOSARTAN 50 MG TABLET PO SCH (18:00)
[2021-12-08 18:40] VITALS: BP 154/92
[2021-12-08] MEDS ORDERED: CLONIDINE HCL 0.1 MG TABLET PO SCH (21:00)
== END 2021-12-08 18:32 | disposition home or self-care (01) | DRG 311 ==
LOC: EDH 16:15 → EDHIP 16:16 → 2DH 23:23
PROVIDERS: ADMIT Internal Medicine; ATTEND Internal Medicine
DX: I20.0 Unstable angina (principal); M32.9 Systemic lupus erythematosus, unspecified; I10 Essential (primary) hypertension; M06.9 Rheumatoid arthritis, unspecified; E78.5 Hyperlipidemia, unspecified; Z87.891 Personal history of nicotine dependence; Z90.710 Acquired absence of both cervix and uterus; Z90.49 Acquired absence of other specified parts of digestive tract; Z82.49 Family history of ischemic heart disease and other diseases of the circulatory system; Z87.11 Personal history of peptic ulcer disease
CPT/HCPCS: 36415; 71046; 80048; 80053; 82550; 82948; 83735; 83874; 84484; 85025; 85378; 93005; 93306; 93356; 93970; C9113; G0378; J1650

== ENCOUNTER 2022-12-19 09:28 | Emergency (ER) | payer OTHER, MEDICARE ==
[~2022-12-19] VITALS: Ht 157.5 cm; Wt 59.0 kg
[~2022-12-19 09:28] MED LIST changes: +CLON0.1T PO; +GABA-529 PO; +HYDR-3420 PO; +HYDR-4068 PO; +METO5TAB2 PO; +SUCR1TAB2 PO
[2022-12-19] MEDS ORDERED: DiphenhydrAMINE HCL 50 MG/ML VIAL IV ONE (10:00)
[2022-12-19] MEDS ORDERED: METOCLOPRAMIDE 10 MG/2 ML VIAL IVP ONE (10:00)
[2022-12-19] MEDS ORDERED: 0.9% NACL 500ML IV.SOLN 500 ML IV ONE (10:00)
[2022-12-19 10:24] LABS: BASOPHILS % (AUTO) 1.3 % (0.0-5.0); EOSINOPHILS % (AUTO) 4.6 % (0.0-8.0); HEMATOCRIT 35.3 % (36-48); LYMPHOCYTES % (AUTO) 36.3 % (21.0-51.0); MEAN CORPUSCULAR HEMOGLOBIN 25.5 pg (27.0-33.0); MEAN CORPUSCULAR HGB CONC 30.6 g/dL (32.0-36.0); MEAN CORPUSCULAR VOLUME 83.3 fL (79-99); MONOCYTES % (AUTO) 12.9 % (3.0-13.0); NEUTROPHILS % (AUTO) 44.6 % (40.0-77.0); PLATELET COUNT (AUTO) 217 K/uL (130-400); RED BLOOD CELL COUNT(AUTO) 4.24 MIL/uL (4.00-5.50); RED CELL DISTRIBUTION WIDTH 16.7 % (11.0-15.5)
[2022-12-19 10:36] LABS: CREATININE 0.7 mg/dL (0.5-1.5); POTASSIUM 3.7 mmol/L (3.5-5.1)
[2022-12-19 10:41] LABS: TOTAL PROTEIN, SERUM 6.8 g/dL (6.0-8.3)
[2022-12-19 11:34] LABS: BASOPHILS % (MANUAL) 1 % (0-2); EOSINOPHILS % (MANUAL) 1 % (1-6); LYMPHOCYTES % (MANUAL) 37 % (22-44); MAN.DIFF COMMENT-IMPRESSION MANUAL DIFFERENTIAL; MONOCYTES % (MANUAL) 20 % (2-9); SEGMENTED NEUTROPHILS % 41 % (40-70)
[2022-12-19 11:35] LABS: PLATELET MORPHOLOGY COMMENT ADEQUATE
[2022-12-19 11:37] LABS: APPEARANCE,URINE CLEAR (CLEAR); BILIRUBIN,URINE NEGATIVE (NEGATIVE); COLOR,URINE YELLOW (YELLOW); GLUCOSE, URINE (UA) NEGATIVE (NEGATIVE); KETONES,URINE NEGATIVE (NEGATIVE); LEUKOCYTE ESTERASE ,URINE 250 Leu/uL (NEGATIVE); NITRATE,URINE 2+ (NEGATIVE); OCCULT BLOOD,URINE NEGATIVE (NEGATIVE); PROTEIN,URINE NEGATIVE (NEGATIVE); UROBILINOGEN,URINE 0.2 mg/dL (0.2-1.0)
[2022-12-19 11:47] LABS: BACTERIA,URINE RARE /HPF (None Seen); MUCUS,URINE RARE LPF (None Seen); RBC,URINE 0-1 /HPF (0-1); SQUAMOUS EPITHELIAL CELL,UR RARE /HPF (0-2)
[2022-12-19] MEDS ORDERED: CEFTRIAXONE 1G VIAL IVP ONE (12:00)
[2022-12-19] MEDS ORDERED: KETOROLAC 15MG/ML VIAL (15MG/ML) IV ONE (12:00)
[2022-12-19] MEDS ORDERED: ACET-66 PO (12:29)
[2022-12-19] MEDS ORDERED: CEPH500B PO (12:29)
[2022-12-19 12:35] VITALS: BP 121/74
== END 2022-12-19 12:41 | disposition home or self-care (01) ==
LOC: EDH 09:28
DX: N39.0 Urinary tract infection, site not specified (principal); R51.9 Headache, unspecified; I10 Essential (primary) hypertension; M19.90 Unspecified osteoarthritis, unspecified site; Z20.822 Contact with and (suspected) exposure to COVID-19; Z90.710 Acquired absence of both cervix and uterus; Z90.49 Acquired absence of other specified parts of digestive tract; Z79.899 Other long term (current) drug therapy
CPT/HCPCS: 99285; 96374; 96375; 70450; 71045; 87635; 96361; 84484; 80053; 85025; 87077; 87088; 87186; 81001; 36415; 93005; C9803; J1200; J7030; J0696; J2765; J1885